=== PATIENT | female | born 1955 | race Caucasian/White ===

== ENCOUNTER 2017-10-17 02:57 | Inpatient (IN) | payer OTHER ==
[~2017-10-17] VITALS: Ht 162.6 cm; Wt 85.7 kg
[2017-10-17] MEDS ORDERED: PANTOPRAZOLE 40 MG 10ML VIAL IV STA (03:53)
[2017-10-17] MEDS ORDERED: SODIUM CHLORIDE 0.9% 1000ML 1,000 ML IV STA (03:53)
[2017-10-17 04:13] LABS: BASOPHILS % 0.2 % (0.0-1.0); EOSINOPHILS # (AUTO) 0.1 (0.0-0.4); EOSINOPHILS % 0.7 % (0.0-6.0); HEMATOCRIT 43.6 % (34.2-44.1); HEMOGLOBIN 15.3 g/dL (12.0-16.0); LYMPHOCYTES # (AUTO) 1.3 (1.0-3.2); LYMPHOCYTES % 15.5 % (18.0-39.1); MEAN CORPUSCULAR HEMOGLOBIN 30.2 pg (28-32); MEAN CORPUSCULAR HGB CONC 35.1 g/dL (31-35); MONOCYTES # (AUTO) 0.4 (0.2-0.8); MONOCYTES % 4.8 % (4.4-11.3); NEUTROPHILS # (AUTO) 6.8 (2.1-6.9); NEUTROPHILS % 78.7 % (38.7-80.0); PLATELET COUNT 251 x10e3/uL (140-360); RED BLOOD COUNT 5.07 x10e6/uL (3.6-5.1); RED CELL DISTRIBUTION WIDTH 13.1 % (11.7-14.4)
[2017-10-17 04:16] LABS: BILIRUBIN,URINE NEGATIVE (NEGATIVE); CLARITY,URINE CLEAR (CLEAR); COLOR,URINE YELLOW (YELLOW); KETONES,URINE NEGATIVE (NEGATIVE); LEUKOCYTE ESTERASE ,URINE TRACE (NEGATIVE); NITRITE,URINE NEGATIVE (NEGATIVE); PROTEIN,URINE DIPSTICK NEGATIVE (NEGATIVE); URINE UROBILINOGEN 0.2 mg/dL (0.2 - 1)
[2017-10-17 04:18] LABS: INR 0.98; PROTHROMBIN TIME 12.2 seconds (11.9-14.5)
[2017-10-17 04:29] LABS: ALANINE AMINOTRANSFERASE 25 IU/L (0-55); ALBUMIN/GLOBULIN RATIO 1.2 (0.8-2.0); ALKALINE PHOSPHATASE 60 IU/L (40-150); AMYLASE 36 U/L (25-125); ANION GAP 14.1 mmol/L (8-16); BACTERIA,URINE FEW /HPF; BLOOD UREA NITROGEN 16 mg/dL (7-26); BUN/CREATININE RATIO 19 (6-25); CARBON DIOXIDE 29 mmol/L (22-29); CHLORIDE 96 mmol/L (98-107); CREATINE KINASE 139 IU/L (29-168); CREATININE, SERUM 0.84 mg/dL (0.57-1.11); EPITHELIAL CELLS,URINE FEW /LPF; EST GLOMERULAR FILTRATION RATE > 60 ML/MIN (60-); GLUCOSE 169 mg/dL (74-118); LIPASE 33 U/L (8-78); MAGNESIUM 1.8 MG/DL (1.3-2.1); POTASSIUM 3.1 mmol/L (3.5-5.1); SODIUM 136 mmol/L (136-145); TRANSITIONAL EPI CELLS,URINE MODERATE
--- NOTE | 2017-10-17 04:43 | Diagnostic Imaging Report ---
CHEST SINGLE (PORTABLE), 10/17/2017 3:53 AM Technique: CHEST SINGLE (PORTABLE) Comparison: None available. Clinical history: \S\HERNÁN ABD PAIN RAD TO CHEST \S\[id number] \S\417 Findings: Linear left basilar atelectasis or scar. Otherwise unremarkable portable appearance of the heart, mediastinum, lungs and pleural spaces. Impression: 1. Lines/Tubes: None 2. No acute abnormality. Signed by: Dr Chey Herrera MD on 10/17/2017 4:40 AM
--- NOTE | 2017-10-17 05:58 | Diagnostic Imaging Report ---
EXAM: CT ABDOMEN/PELVIS W DATE: 10/17/2017 3:53 AM INDICATION: \S\HERNÁN ABD PAIN \S\[id number] \S\050 COMPARISON: None TECHNIQUE: The abdomen and pelvis were scanned using a multidetector helical scanner. Coronal and sagittal reformations were obtained. Routine protocol performed. IV Contrast: 100 ml Isovue 300/370 FINDINGS: LOWER THORAX: No consolidations LIVER/BILIARY: Several subcentimeter hypodensities, likely benign/cysts. No ductal dilatation. GALLBLADDER: 1.4 cm gallstone in the neck. Distended gallbladder with wall thickening and pericholecystic fluid/edema. SPLEEN: Unremarkable PANCREAS: Unremarkable ADRENALS: No nodules KIDNEYS: Punctate nonobstructing right inferior renal calculus. No enhancing masses. No hydronephrosis. GI TRACT: No wall thickening or evidence of obstruction. Normal appendix. VESSELS: Unremarkable PERITONEUM/RETROPERITONEUM: No free air or fluid LYMPH NODES: No lymphadenopathy REPRODUCTIVE ORGANS/BLADDER: Unremarkable SOFT TISSUES: Unremarkable BONES: Somewhat heterogeneous appearance of the bones, of uncertain etiology. L5-S1 degenerative changes. IMPRESSION: 1. Acute cholecystitis. Large gallstone in the neck. 2. Nonspecific heterogeneous appearance of the bones. This could be due to bone marrow heterogeneity in the absence of known malignancy. Consider outpatient MRI for further evaluation. Emergent findings discussed with Physician: NAINA ARMENDARIZ MD Signed by: Dr Chey Herrera MD on 10/17/2017 6:10 AM
[2017-10-17] MEDS ORDERED: IOPAMIDOL 370 MG/ML 200 ML INFUS..BTL INJ ONE (06:11)
[2017-10-17] MEDS ORDERED: SODIUM CHLORIDE 0.9% 50ML 50 ML ONE (06:11)
[2017-10-17] MEDS ORDERED: ONDANSETRON HCL 4 MG ORAL DISINTEGRATING TAB PO PRN (06:30)
[2017-10-17] MEDS ORDERED: KCL 40MEQ/0.9% SOD CHL 1,000 ML IV ONE (06:30)
[2017-10-17] MEDS: PIPER-TAZ 3.375 GM 50 ML IV SCH ×3 (06:30→17:44)
[2017-10-17] MEDS ORDERED: MORPHINE SULFATE 2 MG/ML SYR IV PRN (06:30)
--- OUTSIDE RECORDS SUMMARY | 2017-10-17 06:31 | XMS REPORT ---
Author Author [facility] Address Unknown Phone Unavailable Care Team Providers Care Production Clerks Supervisor Name Role Phone NAINA ARMENDARIZ Unavailable Unavailable Problems This patient has no known problems. Allergies, Adverse Reactions, Alerts This patient has no known allergies or adverse reactions. Medications This patient has no known medications. Results Test Description Test Time Test Comments Text Results Atomic Results Result Comments CHEST SINGLE (PORTABLE) [address] [address] Patient Name: TIEN MALIN MR #: [id number] : 1955 Age/Sex: 62/F Req #: [id number] Adm Physician: Ordered by: NAINA ARMENDARIZ MD Report #: [id number] Location: ER Room/Bed: Procedure: [id number] DX/CHEST SINGLE (PORTABLE) Exam Date: 10/17/17 Exam Time: 417 REPORT STATUS: Signed CHEST SINGLE ( PORTABLE), 10/17/2017 3:53 AM Technique: CHEST SINGLE (PORTABLE) Comparison: None available. Clinical history: S HERNÁN ABD PAIN RAD TO CHEST S [id number] S 417 Findings: Linear left basilar atelectasis or scar. Otherwise unremarkable portable appearance of the heart, mediastinum, lungs and pleural spaces. Impression: 1. Lines/Tubes: None 2. No acute abnormality. Signed by: Dr Maci Herrera MD on 10/17/2017 4:40 AM Dictated By: MACI HERRERA MD 9 Transcribed By: ERINN on 10/17/17439 COPY TO: NAINA ARMENDARIZ MD CT ABDOMEN/PELVIS W [facility] [address] [address] Patient Name: TIEN MALIN MR #: [id number] : 1955 Age/Sex: 62/F Req #: [id number] Adm Physician: Ordered by: NAINA ARMENDARIZ MD Report #: [id number] Location: ER Room/Bed: Procedure: [id number] CT/CT ABDOMEN/PELVIS W Exam Date: 10/17/17 Exam Time: 505 REPORT STATUS: Signed EXAM: CT ABDOMEN/PELVIS W DATE : 10/17/2017 3:53 AM INDICATION: S HERNÁN ABD PAIN S [id number] S 0506 COMPARISON: None TECHNIQUE: The abdomen and pelvis were scanned using a multidetector helical scanner. Coronal and sagittal reformations were obtained. Routine protocol performed. IV Contrast: 100 ml Isovue 300/370 FINDINGS: LOWER THORAX: No consolidations LIVER/BILIARY: Several subcentimeter hypodensities, likely benign/cysts. No ductal dilatation. GALLBLADDER: 1.4 cm gallstone in the neck. Distended gallbladder with wall thickening and pericholecystic fluid/edema. SPLEEN: Unremarkable PANCREAS: Unremarkable ADRENALS: No nodules KIDNEYS: Punctate nonobstructing right inferior renal calculus. No enhancing masses. No hydronephrosis. GI TRACT : No wall thickening or evidence of obstruction. Normal appendix. VESSELS: Unremarkable PERITONEUM/RETROPERITONEUM: No free air or fluid LYMPH NODES: No lymphadenopathy REPRODUCTIVE ORGANS/BLADDER: Unremarkable SOFT TISSUES: Unremarkable BONES: Somewhat heterogeneous appearance of the bones, of uncertain etiology. L5-S1 degenerative changes. IMPRESSION: 1. Acute cholecystitis. Large gallstone in the neck. 2. Nonspecific heterogeneous appearance of the bones. This could be due to bone marrow heterogeneity in the absence of known malignancy. Consider outpatient MRI for further evaluation. Emergent findings discussed with Physician: NAINA ARMENDARIZ MD Signed by: Dr Maci Herrera MD on 10/17/2017 6:10 AM Dictated By: MACI HERRERA MD 9 Transcribed By: ERINN on 10/17/17609 COPY TO: NAINA ARMENDARIZ MD
[2017-10-17 08:00] VITALS: BP 159/85
[2017-10-17 08:50] VITALS: BP 159/85
[2017-10-17 12:00] VITALS: BP 134/67
[2017-10-17] MEDS ORDERED: MIDAZOLAM HCL 2 MG/2 ML VIAL ONE (14:47)
[2017-10-17] MEDS ORDERED: FENTANYL CITRATE/PF 100MCG/2 ML INJ ONE (14:47)
[2017-10-17 16:53] VITALS: BP 132/66
--- NOTE | 2017-10-17 17:36 | History and Physical ---
PRIMARY CARE PROVIDER: Dr. Leonel Wisdom. CHIEF COMPLAINT: Epigastric and right upper quadrant abdominal pain. HISTORY OF PRESENT ILLNESS: Ms. Dickey is a 62-year-old lady presenting with epigastric and right upper quadrant abdominal pain with nausea and vomiting for the last 24 hours after eating some fatty food. REVIEW OF SYSTEMS: She denies fever, chills, or weight loss. She denies sinus congestion or sore throat. She denies chest pain or palpitations. She denies shortness breath, wheezing, or cough. She has abdominal pain, nausea, and vomiting as noted. She denies diarrhea or melena. She denies dysuria or flank pain. She denies rash or pruritus. Denies joint pain or swelling. She denies headache, vertigo, or loss of consciousness. She denies depression, agitation, or homicidal or suicidal ideation. PAST MEDICAL HISTORY: Significant for hypertension for which she takes losartan/HCTZ 100/25 daily and amlodipine 2.5 mg daily. She has a distant history of a hysterectomy. ALLERGIES: SHE HAS NO KNOWN DRUG ALLERGIES. FAMILY HISTORY: Significant for hypertension. SOCIAL HISTORY: The patient is . Trinidadian is her primary language. She is , here with her . She does not smoke, drink, or use illegal drugs, and she is generally independent functioning. PHYSICAL EXAM PSYCHIATRIC: She is alert and oriented x3 with normal mood and affect. CONSTITUTIONAL: She has a normal body habitus. She is in no acute distress. VITAL SIGNS: Blood pressure 134/67, pulse 74 and regular, respiratory rate 18, O2 sat 96%, and temperature 97.3. HEENT: Her head is atraumatic. Her eyes are anicteric with clear conjunctivae. Ears and nares are without erythema or discharge. Oropharynx is clear. NECK: Supple. No mass or thyromegaly. LYMPHATIC SYSTEM: She has no palpable cervical, axillary, or inguinal adenopathy. CARDIOVASCULAR: Her heart has a regular rate rhythm without murmur or extra heart sounds. She has no carotid bruit. She has no peripheral edema. RESPIRATORY: Her lungs are clear to auscultation and percussion with normal respiratory effort. GASTROINTESTINAL: She is mildly tender in the epigastric and right upper quadrant area without rebound or guarding. She has no hepatosplenomegaly or masses palpable and normal bowel sounds are present. CUTANEOUS: Her skin is warm and dry to touch. No rash or skin breakdown. MUSCULOSKELETAL: Her joints are normal in alignment without erythema or swelling. She has no calf tenderness. NEUROLOGIC: Exam is nonfocal with intact cranial nerves and no motor or sensory deficits. DIAGNOSTIC AND LABORATORY STUDIES: Chest x-ray shows no acute disease. CT scan of the abdomen shows acute cholecystitis with a large stone in the neck of the gallbladder. Her UA has 11-20 white cells and a few bacteria. Troponin 0.005. Chemistry shows a potassium of 3.1. The rest of her electrolytes are normal. CO2 29, creatinine 0.84, BUN 16 for a normal GFR, calcium 10.0, and glucose 169. Amylase 36, lipase 33, and transaminases, bilirubin, and alk phos are normal. CBC shows a white count of 8.6 with 79% neutrophils, hemoglobin 15.3, hematocrit 43.6, and platelet count 251,000. IMPRESSION AND PLAN 1. Acute calculous cholecystitis: The patient has received IV fluids, has been started on IV Zosyn, and surgery is being consulted for a cholecystectomy. 1. Hypertension, well controlled. We will continue her losartan alone for now. 2. For prophylaxis, the patient will be using sequential compression devices for deep venous thrombosis prophylaxis and Protonix for gastrointestinal prophylaxis. Job#: [id number] GLADYS
[2017-10-17] MEDS: LOSARTAN POTASSIUM 25 MG TAB PO SCH (17:43)
[2017-10-17] MEDS ORDERED: BUPIVACAINE 0.25%/EPI 30ML SDV INJ ONE (18:30)
[2017-10-17] MEDS ORDERED: PROPOFOL IV EMULSION 10 MG/ML 20 ML VIAL ONE (19:42)
[2017-10-17] MEDS ORDERED: DEXAMETHASONE SOD PHOS INJ 4 MG/ML VIAL ONE (19:42)
[2017-10-17] MEDS ORDERED: SEVOFLURANE INHAL SOLN 250 ML PEN BTL ONE (19:42)
[2017-10-17] MEDS ORDERED: GLYCOPYRROLATE INJ 1MG/ 5 ML SYR ONE (19:42)
[2017-10-17] MEDS ORDERED: ROCURONIUM BROMIDE 10 MG/ML 5ML VIAL ONE (19:42)
[2017-10-17] MEDS ORDERED: ACETAMINOPHEN 1000 MG/100 ML IV ONE (19:42)
[2017-10-17] MEDS ORDERED: ONDANSETRON HCL INJ 2 MG/ML VIAL ONE (19:42)
[2017-10-17] MEDS ORDERED: NEOSTIGMINE 5 MG/5ML SYR ONE (19:42)
[2017-10-17] MEDS ORDERED: KETOROLAC TROMETHAMINE 30 MG/ML VIAL ONE (19:42)
[2017-10-17] MEDS ORDERED: DEXTROSE 5%/LACTATED RINGERS 1,000 ML IV SCH (21:38)
[2017-10-17] MEDS ORDERED: HYDROCODONE/APAP 7.5MG-325MG 1 EA TAB PO PRN (21:45)
[2017-10-17] MEDS ORDERED: ACETAMINOPHEN 1000 MG/100 ML IV PRN (21:45)
[2017-10-17] MEDS ORDERED: PROMETHAZINE 12.5MG/ NACL 0.9% 12.5 MG/50 ML BAG IV PRN (21:45)
[2017-10-18] VITALS: BP 148/70
--- NOTE | 2017-10-18 00:12 | Operative Report ---
DATE OF PROCEDURE: October 17, 2017 PREOPERATIVE DIAGNOSIS: Acute cholecystitis and cholelithiasis. POSTOPERATIVE DIAGNOSIS: Acute cholecystitis and cholelithiasis. OPERATION PERFORMED: Laparoscopic cholecystectomy. ANESTHESIA: General. COMPLICATIONS: None. ESTIMATED BLOOD LOSS: Minimal. PROCEDURE: With the patient lying in bed in the supine position and after good general endotracheal anesthesia, the abdomen was prepped with Betadine solution and draped in the usual manner. A Veress needle was introduced into the umbilicus and pneumoperitoneum was established without any difficulty. An 11-mm trocar was placed into the umbilicus, and a 10 mm video laparoscope was placed into the intra-abdominal cavity. Under direct vision, three 5-mm trocars were placed in the right subcostal region. Video laparoscopy at this point revealed a thick walled edematous gallbladder with a stone impacted at the neck. The only other positive findings were to the lower abdomen where there were some adhesions to the anterior abdominal wall. These were away from the surgical site. The peritoneum overlying the neck of the gallbladder was then opened, and the cystic duct was identified. The cystic duct was followed to its junction with the common duct. Cystic duct was then circumferentially dissected away from the common duct, doubly clipped and divided. The cystic artery was similarly doubly clipped and divided. The gallbladder was then slowly and carefully taken off the liver bed using the cautery and scissors. Perfect hemostasis was ascertained. The gallbladder was then grasped through the umbilical port and removed without any difficulty. Video laparoscopy was then again carried out. The liver bed was found to be perfectly dry. All the excess fluid was aspirated. The pneumoperitoneum was evacuated, and all the trocars were removed under direct vision. The midline fascia at the umbilicus was then closed with a figure-of-8 of 0 Vicryl. All layers were infiltrated on the way out with a solution of 0.25% Marcaine. Subcutaneous tissue was approximated with 3-0 Vicryl and the skin was closed with subcuticular 5-0 Vicryl. Benzoin and Steri-Strips and Band-Aids were applied. The sponge, lap and needle count was correct. The patient tolerated the procedure well, and returned to the recovery room in stable condition. Job#: [id number] RAYMOND
[2017-10-18] MEDS: PIPER-TAZ 3.375 GM 50 ML IV SCH ×2 (00:14→07:11)
[2017-10-18 04:00] VITALS: BP 152/72
[2017-10-18 07:30] LABS: ANION GAP 12.7 mmol/L (8-16); BLOOD UREA NITROGEN 10 mg/dL (7-26); BUN/CREATININE RATIO 13 (6-25); CALCIUM 8.6 mg/dL (8.4-10.2); CARBON DIOXIDE 25 mmol/L (22-29); CHLORIDE 106 mmol/L (98-107); CREATININE, SERUM 0.77 mg/dL (0.57-1.11); EST GLOMERULAR FILTRATION RATE > 60 ML/MIN (60-); GLUCOSE 207 mg/dL (74-118); POTASSIUM 3.7 mmol/L (3.5-5.1); SODIUM 140 mmol/L (136-145)
[2017-10-18] MEDS ORDERED: PANTOPRAZOLE 40 MG 10ML VIAL IV SCH (07:30)
[2017-10-18] MEDS ORDERED: ACETAMINOPHEN/CODEINE 300MG - 30MG TAB PO PRN (08:15)
[2017-10-18] MEDS ORDERED: MAGNESIUM OXID400 MG PO (08:18)
[2017-10-18] MEDS ORDERED: LEVAQUIN500 MG PO (08:18)
[2017-10-18] MEDS ORDERED: ZINC SULFATE220 M1 PO (08:18)
[2017-10-18] MEDS ORDERED: Multivitamins/Minerals PO (08:18)
[2017-10-18] MEDS ORDERED: Calcium Carbonate PO (08:18)
[2017-10-18] MEDS ORDERED: ASCORBIC ACID500 MG PO (08:18)
[2017-10-18] MEDS ORDERED: COZAAR25 MG PO (08:18)
[2017-10-18] MEDS ORDERED: TYLENOL WITH C1 EACH PO (08:22)
[2017-10-18] MEDS ORDERED: ZINC SULFATE 220 MG CAP PO SCH (09:00)
[2017-10-18] MEDS ORDERED: ASCORBIC ACID 500 MG TAB PO SCH (09:00)
[2017-10-18] MEDS ORDERED: MAGNESIUM OXIDE 400 MG TAB PO SCH (09:00)
[2017-10-18] MEDS ORDERED: OYST-CAL-D 500MG TABLET PO SCH (09:00)
[2017-10-18] MEDS ORDERED: LEVOFLOXACIN 500 MG TAB PO SCH (09:00)
[2017-10-18] MEDS ORDERED: MULTIVITAMINS/MINERALS TAB PO SCH (09:00)
[2017-10-18 09:05] VITALS: BP 152/70
[2017-10-18] MEDS: LOSARTAN POTASSIUM 25 MG TAB PO SCH (10:30)
--- NOTE | 2017-10-18 13:10 | Discharge Summary ---
PERTINENT HISTORY AND PHYSICAL FINDINGS: Ms. Dickey is a 62-year-old lady who presented with epigastric and right upper quadrant abdominal pain with nausea and vomiting for 24 hours prior to admission after eating some fatty food. PAST MEDICAL HISTORY: Significant for hypertension and a distant history of hysterectomy. NO KNOWN ALLERGIES. FAMILY HISTORY: Significant for hypertension. SOCIAL HISTORY: She is . Tajik is her primary language. She is . Does not smoke, drink or use illicit drugs and generally independently functioning. ADMISSION DIAGNOSES: Included 1. Acute calculus cholecystitis. 2. Hypertension. DISCHARGE DIAGNOSES 1. Acute calculus cholecystitis, status post laparoscopic cholecystectomy October 17, 2017, by Dr. Renee. 2. Hypertension, controlled. PERTINENT DIAGNOSTIC AND LABORATORY STUDIES: A chest x-ray had shown no active disease. CT scan of the abdomen showed acute cholecystitis with large stone in the neck of the gallbladder. UA had 11-20 white cells and a few bacteria. Chemistry showed a potassium of 3.1. Other electrolytes were normal, CO2 29, creatinine 0.84, BUN 16 for a normal GFR, calcium 10, glucose 169. Amylase 36, lipase 33. Transaminases, bilirubin and alkaline phosphatase were normal. CBC showed a white blood cell count of 8.6 with 79% neutrophils, hemoglobin 15.3, hematocrit 43.6 and platelet count of 251,000. Today sodium 140, potassium 3.7, chloride 106, CO2 25, BUN 10, creatinine 0.77, GFR greater than 60, glucose 207, calcium 8.6. Consulting physicians include Dr. Sheldon Renee. Today the patient has no pain, has mild headache, no chills. Continues to tolerate clear-liquid diet without any difficulty. Other parts of the 14-point review of systems were negative. PHYSICAL EXAMINATION VITAL SIGNS: Temperature 99.6, heart rate 94, blood pressure 148/70, respirations 18, oxygen saturation 91% on room air. GENERAL: The patient is lying supine, relaxing in bed. No acute distress. LUNGS: Clear to auscultation bilaterally and throughout. HEENT: Extraocular eye movements intact. NECK: Supple. No lymphadenopathy, thyromegaly. CARDIOVASCULAR: Regular rate and rhythm. No murmur. ABDOMEN: Bowel sounds positive. Soft, obese, slightly tender to gentle palpation. EXTREMITIES: Without pitting edema. No clubbing, cyanosis or marked swelling. NEUROLOGICAL: GCS 15. Nonfocal. Patient will be discharged home with Levaquin 500 mg p.o. daily for 7 days and Tylenol No. 3 with codeine 1 tablet q.4 h. p.r.n. for pain, quantity 30, per request from Dr. Renee. She is to continue on her clear-liquid diet for now, activity level as tolerated, and ambulation is encouraged. She is to follow up with her PCP in 1 to 2 weeks, follow up with Dr. Renee as directed. Dictated by: Devon Kaplan NP ARTURO VICKERS MD Job#: [id number] EV
== END 2017-10-18 12:25 | disposition home or self-care (01) | DRG 419 ==
LOC: ER 02:57 → ERHOLD 06:29 → MED/SURG 07:37
PROVIDERS: ADMIT Internal Medicine; ATTEND Internal Medicine
PROC: 0FT44ZZ Resection of Gallbladder, Percutaneous Endoscopic Approach (ICD-10-PCS; principal; 2017-10-17 19:30)
DX: K80.12 Calculus of gallbladder with acute and chronic cholecystitis without obstruction (principal); I10 Essential (primary) hypertension
CPT/HCPCS: 36415; 71045; 74177; 80048; 80053; 81001; 82150; 82550; 82553; 83690; 83735; 84484; 85025; 85610; 85730; 87086; 88304; 93005; 99284; C1766; J1100; J1885; J2250; J2270; J2405; J2543; J7030; J7120; Q9967